=== PATIENT | female | born 1990 | race Caucasian/White ===

== ENCOUNTER 2018-06-01 18:32 | Emergency (ER) | payer BC ==
[~2018-06-01] VITALS: Ht 172.7 cm; Wt 68.0 kg
[2018-06-01] MEDS ORDERED: NKM (18:46)
--- NOTE | 2018-06-01 18:47 | NUR ---
ED Nurse Note: Pt came into the ER w/ complaints of s/p tripping on Friday and ever since complaining of pain on the left side of her body. Complaining of 8/10 left neck pain. Left cheek bruise noted. A + O x4. Ambulatory. Skin warm to touch.
[2018-06-01 18:50] VITALS: BP 128/85
--- NOTE | 2018-06-01 19:02 | NUR ---
HAND-OFF: Report given to Brent Morgan RN.
--- NOTE | 2018-06-01 19:19 | Emergency Room Report ---
History of Present Illness General Chief Complaint: Multiple Trauma/Fall Source: Patient Present Illness HPI * 27 YO Female presents to the ED c/o 05/17 in severity pain to the left knee, and left shoulder. Pt. reports taking arnica. Pt. denies N/V, Dizziness, changes in vision or balance. pt. reports pain with chewing. Denies LOC. Denies midline neck pain. Denies numbness tingling or loss of sensation or gross motor movements of the extremities, incontinence of bowel or bladder. Denies CP, Palpitations, LOC, AMS , dizziness, Changes in Vision, weakness or a sudden severe headache. Allergies: Coded Allergies: CODEINE (Verified Allergy, Unknown, 06/01/18) Patient History Past Medical History: see triage record Past Surgical History: none Pertinent Family History: none Last Menstrual Period: IUD Immunizations: UTD Reviewed Nursing Documentation: PMH: Agreed; PSxH: Agreed Nursing Documentation-PMH Past Medical History: No Stated History Review of Systems All Other Systems: negative except mentioned in HPI Physical Exam Vital Signs Date Time Temp Pulse Resp B/P (MAP) Pulse Ox O2 Delivery O2 Flow Rate FiO2 06/01/18 18:44 97.9 65 18 130/79 96 Room Air 06/01/18 18:50 100 Medical Decision Making PA Attestation Dr. Delaney is my supervising Physician whom patient management has been discussed with. Diagnostic Impression: Primary Impression: Contusion of face Qualified Codes: S00.83XA - Contusion of other part of head, initial encounter Additional Impressions: Abrasions of multiple sites Contusion of knee, left Qualified Codes: S80.02XA - Contusion of left knee, initial encounter Arm pain Qualified Codes: M79.602 - Pain in left arm ER Course Pt. presents to the ED c/o [ ] -Denies Loss of consciousness Ddx considered but are not limited to Fracture, dislocation, contusion, concussion Sprain/Strain/Spasm, hematoma Vital signs: are WNL, pt. is afebrile H&PE are most consistent with contusion, no evidence of focal neurological deficit, no loss of consciousness. ORDERS: none required at this time. PE and HPI do not indicate CT at this time. ED INTERVENTIONS: -Tylenol PO -Wound Care, and application of bacitracin and sterile dressing by RN. -D/w Pt. reasoning for not doing Head CT, also discussed red flag symptoms to keep an eye out for that would indicate prompt return to the ED. - Pt. and (Pt. mother) verbalize their understanding and agreement with proposed treatment plan. DISCHARGE: At this time pt. is stable for d/c to home. Will provide printed patient care instructions, and any necessary prescriptions. Care plan and follow up instructions have been discussed with the patient prior to discharge. Other X-Ray Diagnostic Results Other X-Ray Diagnostic Results #1: X-Ray ordered: Left Knee # of Views/Limited Vs Complete: 3 View Indication: Pain EP Interpretation: Yes PA Xray: Interpretation reviewed, by supervising MD, and agrees with findings. Interpretation: no dislocation, no soft tissue swelling Impression: No acute disease Electronically Signed by: Yasmin Cantu PA-C Other X-Ray Diagnostic Results #2: X-Ray ordered: Left Shoulder # of Views/Limited Vs Complete: 3 View Indication: Pain EP Interpretation: Yes PA Xray: Interpretation reviewed, by supervising MD, and agrees with findings. Interpretation: no dislocation, no soft tissue swelling, no fractures Impression: No acute disease Electronically Signed by: Yasmin Cantu PA-C Last Vital Signs Date Time Temp Pulse Resp B/P (MAP) Pulse Ox O2 Delivery O2 Flow Rate FiO2 06/01/18 18:50 65 18 Room Air 100 06/01/18 18:50 97.9 128/85 100 Disposition: HOME, SELF-CARE Condition: Stable Yasmin Cantu Jun 01, 2018 19:19
[2018-06-01] MEDS ORDERED: Bacitracin Oint UD TOPIC ONE (19:30)
[2018-06-01] MEDS ORDERED: MUPIROCIN22 GM TOPIC (19:45)
[2018-06-01] MEDS ORDERED: MEDERMA GEL20 GM TP (19:45)
[2018-06-01] MEDS ORDERED: ROBAXIN-750750 MG PO (19:45)
[2018-06-01] MEDS ORDERED: TYLENOL EXTRA500 MG ORAL (19:45)
[2018-06-01 20:00] VITALS: BP 128/85
--- NOTE | 2018-06-01 20:00 | NUR ---
ED Nurse Note: Patient cleared cleared for discharge per ERMD. AO4. NAD. VSS. Patient given prescriptions and discharge instructions; verbalized understanding. ID removed. Patient ambulated steady out of ED with all belongings.
--- NOTE | 2018-06-02 08:53 | Diagnostic Imaging Report ---
Indication: Knee pain, status post fall Technique: 3 views of the left knee Comparison: None Findings: No acute fractures. No dislocations. The joint spaces are preserved Impression: Negative
--- NOTE | 2018-06-02 08:53 | Diagnostic Imaging Report ---
Indication: Pain, status post fall Technique: 3 views of the left shoulder Comparison: none Findings: No acute fractures. No dislocations. The joint spaces are preserved. Impression: Negative
== END 2018-06-01 20:00 | disposition home or self-care (01) ==
LOC: EMR 19:13
DX: S80.02XA Contusion of left knee, initial encounter (principal); S00.83XA Contusion of other part of head, initial encounter; S40.022A Contusion of left upper arm, initial encounter; W19.XXXA Unspecified fall, initial encounter; Y92.9 Unspecified place or not applicable; Z88.5 Allergy status to narcotic agent
CPT/HCPCS: 99284